=== PATIENT | male | born 1990 | race African-American/Black ===

== ENCOUNTER 2016-03-26 14:31 | Emergency (ER) | payer BC ==
[~2016-03-26] VITALS: Ht 177.8 cm; Wt 61.7 kg
[2016-03-26 14:38] VITALS: BP 162/88
--- NOTE | 2016-03-26 14:45 | PHYS DOC ---
Past Medical History Past Medical History: Other Additional Past Medical Histor: Traumatic brain injury. Past Surgical History: No Surgical History Smoking: Cigarettes Alcohol Use: Occasionally Drug Use: None Adult General Chief Complaint Chief Complaint: HAND PROBLEM HPI HPI Patient is a 25 year old female presents emergency department stating that he fell on the ice today. He states that he landed on some of the skull that he has started on the ground. He has abrasions noted to his right hand at the fourth and fifth metacarpal area. Patient has full range of motion of the hand in the wrist. Bleeding is currently controlled. Patient states his last tetanus was in 2012. Patient states that he is ambidextrous. Patient denies any further pain or discomfort. Review of Systems Review of Systems Constitutional: Denies fever or chills [] Eyes: Denies change in visual acuity, redness, or eye pain [] HENT: Denies nasal congestion or sore throat [] Respiratory: Denies cough or shortness of breath [] Cardiovascular: No additional information not addressed in HPI [] Musculoskeletal: Denies back pain. C/o right hand pain and discomfort Integument: Denies rash or skin lesions. Abrasion to the right 4th and 5th metacarpal area Neurologic: Denies headache, focal weakness or sensory changes [] Current Medications Current Medications Current Medications Medications (Trade) Dose Ordered Sig/Tila Start Time Stop Time Status Last Admin Dose Admin Diphtheria/ Tetanus/Acell Pertussis (Boostrix) 0.5 ml ONCE ONCE 03/26/16 15:00 03/26/16 15:01 Neomycin/ Polymyxin/ Bacitracin (Triple Antibiotic Ointment) 1 pkt 1X ONCE 03/26/16 15:00 03/26/16 15:01 Allergies Allergies Allergies Coded Allergies Type Severity Reaction Last Updated Verified No Known Drug Allergies 01/24/15 No Physical Exam Physical Exam Constitutional: Well developed, well nourished, no acute distress, non-toxic appearance. [] HENT: Normocephalic, atraumatic, bilateral external ears normal, oropharynx moist, no oral exudates, nose normal. [] Eyes: PERRLA, EOMI, conjunctiva normal, no discharge. [] Neck: Normal range of motion, no tenderness, supple, no stridor. [] Cardiovascular:Heart rate regular rhythm, no murmur [] Lungs & Thorax: Bilateral breath sounds clear to auscultation [] Skin: Warm, dry, no erythema, no rash. [] Back: No tenderness Extremities: Right hand tenderness, no cyanosis, no clubbing, ROM intact, no edema. Patient with full range of motion of the right hand and wrist area. No tenderness noted over the snuffbox. Patient has abrasions noted at the fourth and fifth metacarpal area. Bleeding is currently controlled. Neurologic: Alert and oriented X 3, normal motor function, normal sensory function, no focal deficits noted. [] Psychologic: Affect normal, judgement normal, mood normal. [] Current Patient Data Vital Signs Vital Signs Date Time Temp Pulse Resp B/P Pulse Ox O2 Delivery O2 Flow Rate FiO2 03/26/16 14:38 98.4 70 14 97 Room Air 98.4 EKG EKG [] Radiology/Procedures Radiology/Procedures [][facility] [address] [place] [address] IMAGING REPORT Signed PATIENT: OCTAVIARANGEL Tamiko ACCOUNT: [id number] : 1990 LOCATION: ER AGE: 25 SEX: M EXAM [id number] STATUS: PRE ER ORD. PHYSICIAN: LETY DASILVA NP REASON: fell on ice today, pain to right hand/wrist, little laceration on 5th fing PROCEDURE: HAND RIGHT 3V; WRIST 3V RIGHT Right wrist and right hand radiographs History: Fell on ice today, pain, laceration. Comparison: None. Findings: PA, lateral, and oblique views of the right wrist. No acute fracture or dislocation is identified. No focal soft tissue swelling is seen. PA, lateral, and oblique views of the right hand. No acute fracture or dislocation is identified. Soft tissue irregularity and swelling is seen adjacent to the fifth MCP joint, compatible with provided history of laceration. Impression: No acute osseous traumatic injury identified in the right wrist or right hand. DICTATED and SIGNED BY: RANGEL MAZA MD DATE: 03/26/16 3331 CC: LETY DASILVA LITERATURE PROFESSOR; NO PCP ~ Course & Med Decision Making Course & Med Decision Making Pertinent Labs and Imaging studies reviewed. (See chart for details) Patient will be updated with a tetanus immunization. Site will be cleaned with soap and water. X-rays negative for any fractures. Site was cleaned with soap and water and antibiotic ointment was placed over the area. Steri-Strips was also used to closed the abrasions. Patient was provided with wound care instructions. Patient provided with signs and symptoms of infection: Redness, warmth, tenderness or any yellow/greenish drainage of a come from the site. Patient was also instructed to use ice packs on 20 minutes off 20 minutes several times a day elevation as much as possible. Tylenol or ibuprofen for pain and discomfort. Patient will be discharged home in stable condition signs and symptoms to return back to emergency department as been provided. Patient agrees with discharge instructions treatment regimens and follow-up recommendations. [] Dragon Disclaimer Dragon Disclaimer This electronic medical record was generated, in whole or in part, using a voice recognition dictation system. Departure Departure Impression: Primary Impression: Fall Additional Impressions: Hand pain, right Abrasion hand Disposition: HOME, SELF-CARE Condition: STABLE Referrals: NO PCP (PCP) Patient Instructions: Abrasion, [id number], Hand Contusion, [id number] Additional Instructions: Activity as tolerated. Ice packs on 20 minutes off treatment several times a day. Elevation as much as possible. The area clean and dry. Clean the site with soap and apply antibiotic ointment to the area twice a day. Did not remove the Steri-Strips they will follow off in approximately 7-10 days. Watch for signs and symptoms of infection: Redness, warmth, tenderness or any yellow/greenish drainage of a come from the site of condition or. Need follow- up to primary care physician immediately. Return back to emergency prior signs symptoms of become worse. Problem Qualifiers LETY DASILVA NP Mar 26, 2016 14:45
--- NOTE | 2016-03-26 14:56 | RAD ---
Right wrist and right hand radiographs History: Fell on ice today, pain, laceration. Comparison: None. Findings: PA, lateral, and oblique views of the right wrist. No acute fracture or dislocation is identified. No focal soft tissue swelling is seen. PA, lateral, and oblique views of the right hand. No acute fracture or dislocation is identified. Soft tissue irregularity and swelling is seen adjacent to the fifth MCP joint, compatible with provided history of laceration. Impression: No acute osseous traumatic injury identified in the right wrist or right hand.
[2016-03-26] MEDS ORDERED: DIPHTH,PERTUSS(ACELL),TET TOX 0.5 ML DISP.SYRIN. VAX IM ONE (15:00)
[2016-03-26] MEDS ORDERED: NEOMY/BACITR/POLYMYXIN OINT PACKET. TP ONE (15:00)
== END 2016-03-26 15:05 | disposition home or self-care (01) ==
LOC: ER 14:31
DX: S60.511A Abrasion of right hand, initial encounter (principal); F17.210 Nicotine dependence, cigarettes, uncomplicated; Z87.820 Personal history of traumatic brain injury; W00.0XXA Fall on same level due to ice and snow, initial encounter; Y93.89 Activity, other specified; Y99.8 Other external cause status; Y92.89 Other specified places as the place of occurrence of the external cause
CPT/HCPCS: 73110; 73130; 90471; 90715; 99284-25